=== PATIENT | male | born 1945 | race Caucasian/White ===

== ENCOUNTER → 2017-04-25 | Outpatient (CLI) | payer MEDICARE, OTHER ==
[~2017-04-25] MED LIST: ATOR20TA PO; GLIP2.5T16 PO; MAGNESIUM PO; METF100010 PO; OXYC-302 PO; PIOG30TA8 PO; TIZA2CAP2 PO
== END | disposition home or self-care (01) ==
LOC: CARD 15:43
PROVIDERS: ATTEND Family Medicine
DX: R06.02 Shortness of breath (principal)
CPT/HCPCS: 94060; 94726; 94729

== ENCOUNTER 2017-08-22 13:30 | Observation (INO) | payer MEDICARE, OTHER ==
[~2017-08-22] VITALS: Ht 167.6 cm; Wt 82.8 kg
[~2017-08-22 13:30] MED LIST changes: +AMIO200T42 PO; +ASPI-770 PO; +CEPH-368 PO; +CLOP75TA PO; +DOCU-131 PO; +FURO20TA3 PO; +GUAI200T3 PO; +HYDR-3240 PO; +METO25TA35 PO; +PANT40TA5 PO; +PIOG30TA23 PO; -PIOG30TA8 PO; +POTA20TA6 PO
[2017-08-23] VITALS (7 sets, daily range): BP systolic 101–128; BP diastolic 61–73
[2017-08-23] MEDS ORDERED: FENTANYL PF 250 MCG/5ML ONE (13:49)
[2017-08-23] MEDS ORDERED: MIDAZOLAM 1 MG/ML, 5ML ONE (13:49)
[2017-08-23] MEDS ORDERED: CEFAZOLIN 1,000 MG ONE (14:16)
[2017-08-23] MEDS ORDERED: PROPOFOL 10 MG/ML, 20ML ONE (14:34)
[2017-08-23] MEDS ORDERED: ONDANSETRON 2MG/ML, 2ML IVPush PRN (15:00)
[2017-08-23] MEDS ORDERED: ACETAMINOPHEN 325 MG TABLET PO PRN (15:00)
[2017-08-23] MEDS ORDERED: HYDROmorphone 1 MG/ML, 1ML IV PRN (15:00)
[2017-08-23] MEDS ORDERED: FENTANYL PF 100 MCG/2ML IV PRN (15:00)
[2017-08-23] MEDS ORDERED: TIZANIDINE 2MG TABLET PO PRN (15:00)
[2017-08-23] MEDS ORDERED: MIDAZOLAM 1 MG/ML, 2ML IV PRN (15:00)
[2017-08-23] MEDS ORDERED: PROMETHAZINE 25 MG/ML, 1ML IV PRN (15:00)
[2017-08-23] MEDS ORDERED: OXYcodone 5 MG/5 ML ORAL.SOL UDC PO PRN (15:00)
[2017-08-23] MEDS ORDERED: HYDROcodone/APAP 5/325 TABLET PO PRN (15:00)
[2017-08-23] MEDS ORDERED: OXYcodone 5 MG/5 ML ORAL.SOL UDC ONE ×2 (15:10→15:20)
[2017-08-23] MEDS ORDERED: ACETAMINOPHEN 650 MG/20.3 ML UDC ONE ×2 (15:10→15:20)
[2017-08-23 15:52] LABS: HEMATOCRIT 36.1 % (39.2-51.8); HEMOGLOBIN 12.1 g/dL (13.7-18.0); WHITE BLOOD COUNT 5.6 x10^3/uL (3.4-10)
[2017-08-23] MEDS: GUAIFENESIN 200 MG TABLET PO SCH ×2 (16:00→21:00)
[2017-08-23 16:05] LABS: BLOOD UREA NITROGEN 11 mg/dL (7-18)
[2017-08-23] MEDS: METOPROLOL TARTRATE 25 MG TABLET PO SCH (17:23)
[2017-08-23] MEDS: AMIODARONE 200 MG TABLET PO SCH (20:59)
[2017-08-23] MEDS: metFORMIN XR 500 MG TAB.ER.24H PO SCH (20:59)
[2017-08-23] MEDS: CEPHALEXIN 500 MG CAPSULE PO SCH (21:00)
[2017-08-23] MEDS: DOCUSATE 100 MG CAPSULE PO SCH (21:00)
[2017-08-23] MEDS ORDERED: ATORVASTATIN 20 MG TABLET PO SCH (21:00)
[2017-08-24 02:41] VITALS: BP 115/68
[2017-08-24 05:32] VITALS: BP 109/66
[2017-08-24] MEDS: GUAIFENESIN 200 MG TABLET PO SCH ×3 (05:33→16:00)
[2017-08-24] MEDS: METOPROLOL TARTRATE 25 MG TABLET PO SCH ×2 (05:33→18:31)
[2017-08-24] MEDS ORDERED: PANTOPROZOLE 40MG TABLET PO SCH (07:30)
[2017-08-24 08:16] VITALS: BP 115/67
[2017-08-24] MEDS ORDERED: ASPIRIN 81 MG TABLET CHEW PO SCH (09:00)
[2017-08-24] MEDS ORDERED: PIOGLITAZONE 15 MG TABLET PO SCH (09:00)
[2017-08-24] MEDS ORDERED: POTASSIUM CHLORIDE 20 MEQ TAB.ER.PRT PO SCH (09:00)
[2017-08-24] MEDS ORDERED: FUROSEMIDE 20 MG TABLET PO SCH (09:00)
[2017-08-24] MEDS: DOCUSATE 100 MG CAPSULE PO SCH (09:00)
[2017-08-24] MEDS ORDERED: CLOPIDOGREL 75 MG TABLET PO SCH (09:00)
[2017-08-24] MEDS ORDERED: GLIPizide ER 2.5 MG TABLET PO SCH (09:00)
[2017-08-24] MEDS: metFORMIN XR 500 MG TAB.ER.24H PO SCH (10:12)
[2017-08-24] MEDS: AMIODARONE 200 MG TABLET PO SCH ×2 (10:12→18:31)
[2017-08-24] MEDS: CEPHALEXIN 500 MG CAPSULE PO SCH (10:14)
[2017-08-24] MEDS ORDERED: DOXY100V9 PO (13:26)
[2017-08-24] MEDS ORDERED: CEFD300C37 PO (13:29)
[2017-08-24 13:39] VITALS: BP 125/73
[2017-08-24] MEDS ORDERED: DOXYCYCLINE 100MG TABLET ONE (18:02)
[2017-08-24] MEDS ORDERED: DOXYCYCLINE 100MG TABLET PO SCH (21:00)
[2017-08-24] MEDS ORDERED: CEFDINIR 300 MG CAPSULE PO SCH (21:00)
== END 2017-08-24 18:55 | disposition home or self-care (01) ==
LOC: EDSTATUS 13:30 → INTOOBSV 08-23 11:03 → 5SO 08-23 11:03
PROVIDERS: ADMIT Thoracic Surgery (Cardiothoracic Vascular Surgery); ATTEND Thoracic Surgery (Cardiothoracic Vascular Surgery)
DX: L76.34 Postprocedural seroma of skin and subcutaneous tissue following other procedure (principal)
CPT/HCPCS: 27301; 36415; 80048; 85025; 87070; 87075; 87186; 87205; G0378; J0690; J2250; J2704; J3010

== ENCOUNTER → 2017-08-28 | Outpatient (CLI) | payer MEDICARE, OTHER ==
[~2017-08-28] MED LIST changes: +CEFD300C37 PO; +DOXY100V9 PO
== END | disposition home or self-care (01) ==
LOC: WOUND 08:49
PROVIDERS: ATTEND Internal Medicine
DX: T81.31XA Disruption of external operation (surgical) wound, not elsewhere classified, initial encounter (principal); E11.51 Type 2 diabetes mellitus with diabetic peripheral angiopathy without gangrene; I48.0 Paroxysmal atrial fibrillation; E78.00 Pure hypercholesterolemia, unspecified; I10 Essential (primary) hypertension; F17.210 Nicotine dependence, cigarettes, uncomplicated; Z96.649 Presence of unspecified artificial hip joint; Y92.89 Other specified places as the place of occurrence of the external cause; Y83.8 Other surgical procedures as the cause of abnormal reaction of the patient, or of later complication, without mention of misadventure at the time of the procedure
CPT/HCPCS: 11042; 11045; 97605; G0463; WOU0463

== ENCOUNTER → 2017-09-04 | Outpatient (CLI) | payer MEDICARE, OTHER | END | disposition home or self-care (01) | LOC: WOUND 10:30 | PROVIDERS: ATTEND Family Medicine | DX: T81.31XD Disruption of external operation (surgical) wound, not elsewhere classified, subsequent encounter (principal); I10 Essential (primary) hypertension; I48.0 Paroxysmal atrial fibrillation; E11.51 Type 2 diabetes mellitus with diabetic peripheral angiopathy without gangrene; I25.10 Atherosclerotic heart disease of native coronary artery without angina pectoris; E66.9 Obesity, unspecified; E78.5 Hyperlipidemia, unspecified; I49.01 Ventricular fibrillation; Z95.1 Presence of aortocoronary bypass graft; F17.210 Nicotine dependence, cigarettes, uncomplicated; Z96.649 Presence of unspecified artificial hip joint; Z68.33 Body mass index [BMI] 33.0-33.9, adult; Y83.8 Other surgical procedures as the cause of abnormal reaction of the patient, or of later complication, without mention of misadventure at the time of the procedure | CPT/HCPCS: 11042; 97605 ==

== ENCOUNTER → 2017-09-11 | Outpatient (CLI) | payer MEDICARE, OTHER | END | disposition home or self-care (01) | LOC: WOUND 13:00 | PROVIDERS: ATTEND Internal Medicine | DX: T81.31XD Disruption of external operation (surgical) wound, not elsewhere classified, subsequent encounter (principal); I25.10 Atherosclerotic heart disease of native coronary artery without angina pectoris; I10 Essential (primary) hypertension; I48.0 Paroxysmal atrial fibrillation; E11.51 Type 2 diabetes mellitus with diabetic peripheral angiopathy without gangrene; I49.01 Ventricular fibrillation; E78.00 Pure hypercholesterolemia, unspecified; F17.210 Nicotine dependence, cigarettes, uncomplicated; Z96.649 Presence of unspecified artificial hip joint; Z95.1 Presence of aortocoronary bypass graft; Z68.33 Body mass index [BMI] 33.0-33.9, adult; Y83.8 Other surgical procedures as the cause of abnormal reaction of the patient, or of later complication, without mention of misadventure at the time of the procedure | CPT/HCPCS: 97597 ==

== ENCOUNTER → 2017-09-18 | Outpatient (CLI) | payer MEDICARE, OTHER | END | disposition home or self-care (01) | LOC: WOUND 10:30 | PROVIDERS: ATTEND Internal Medicine | DX: T81.31XD Disruption of external operation (surgical) wound, not elsewhere classified, subsequent encounter (principal); I25.10 Atherosclerotic heart disease of native coronary artery without angina pectoris; I10 Essential (primary) hypertension; I48.0 Paroxysmal atrial fibrillation; E78.00 Pure hypercholesterolemia, unspecified; E11.51 Type 2 diabetes mellitus with diabetic peripheral angiopathy without gangrene; I49.01 Ventricular fibrillation; E66.9 Obesity, unspecified; F17.210 Nicotine dependence, cigarettes, uncomplicated; Z95.1 Presence of aortocoronary bypass graft; Z68.33 Body mass index [BMI] 33.0-33.9, adult; Y83.8 Other surgical procedures as the cause of abnormal reaction of the patient, or of later complication, without mention of misadventure at the time of the procedure | CPT/HCPCS: 11042; 97605 ==

== ENCOUNTER → 2017-09-25 | Outpatient (CLI) | payer MEDICARE, OTHER | END | disposition home or self-care (01) | LOC: WOUND 09:00 | PROVIDERS: ATTEND Internal Medicine | DX: T81.31XD Disruption of external operation (surgical) wound, not elsewhere classified, subsequent encounter (principal); I25.10 Atherosclerotic heart disease of native coronary artery without angina pectoris; I10 Essential (primary) hypertension; E66.9 Obesity, unspecified; I48.0 Paroxysmal atrial fibrillation; E78.00 Pure hypercholesterolemia, unspecified; I49.01 Ventricular fibrillation; F17.210 Nicotine dependence, cigarettes, uncomplicated; Z68.33 Body mass index [BMI] 33.0-33.9, adult; Z95.1 Presence of aortocoronary bypass graft; Y83.8 Other surgical procedures as the cause of abnormal reaction of the patient, or of later complication, without mention of misadventure at the time of the procedure | CPT/HCPCS: 97597 ==

== ENCOUNTER → 2017-10-09 | Outpatient (CLI) | payer MEDICARE, OTHER | END | disposition home or self-care (01) | LOC: WOUND 09:25 | PROVIDERS: ATTEND Internal Medicine | DX: T81.31XD Disruption of external operation (surgical) wound, not elsewhere classified, subsequent encounter (principal); I25.10 Atherosclerotic heart disease of native coronary artery without angina pectoris; I10 Essential (primary) hypertension; E66.9 Obesity, unspecified; I48.0 Paroxysmal atrial fibrillation; E78.00 Pure hypercholesterolemia, unspecified; I49.01 Ventricular fibrillation; E11.51 Type 2 diabetes mellitus with diabetic peripheral angiopathy without gangrene; F17.210 Nicotine dependence, cigarettes, uncomplicated; Z68.33 Body mass index [BMI] 33.0-33.9, adult; Z96.649 Presence of unspecified artificial hip joint; Z95.1 Presence of aortocoronary bypass graft; Y83.8 Other surgical procedures as the cause of abnormal reaction of the patient, or of later complication, without mention of misadventure at the time of the procedure | CPT/HCPCS: G0463; WOU0463 ==

== ENCOUNTER → 2017-12-26 | Outpatient (CLI) | payer MEDICARE, OTHER ==
[~2017-12-26] MED LIST changes: +ASPI-496 PO; +PREG150C PO
[2017-12-26 12:08] LABS: BASOPHILS # (AUTO) 0.03 x10^3/uL (0-0.1); BASOPHILS % (AUTO) 1 % (0-1); EOSINOPHILS # (AUTO) 0.23 x10^3/uL (0-0.4); EOSINOPHILS % (AUTO) 4 % (1-7); LYMPHOCYTES # (AUTO) 2.23 x10^3/uL (1-3.4); LYMPHOCYTES % (AUTO) 43 % (22-44); MD NO; MEAN CORPUSCULAR HEMOGLOBIN 32.3 pg (27.5-34.5); MEAN CORPUSCULAR HGB CONC 34.3 g/dL (33.2-36.2); MEAN CORPUSCULAR VOLUME 94.2 fL (81-97); MEAN PLATELET VOLUME 7.9 fL (7.4-10.4); MONOCYTES # (AUTO) 0.59 x10^3/uL (0.2-0.8); MONOCYTES % (AUTO) 11 % (2-9); NEUTROPHILS # (AUTO) 2.14 x10^3/uL (1.8-6.8); NEUTROPHILS % (AUTO) 41 % (42-75); PLATELET COUNT 207 x10^3/uL (130-400); RED BLOOD COUNT 4.68 x10^6/uL (4.38-5.82); RED CELL DISTRIBUTION WIDTH 14.9 % (9.4-14.8)
[2017-12-26 12:17] LABS: CHLORIDE 109 mmol/L (98-107)
[2017-12-26 12:25] LABS: ANION GAP 9 mmol/L (5-15); CALCIUM 8.6 mg/dL (8.5-10.1)
== END | disposition home or self-care (01) ==
LOC: STAR 11:07
PROVIDERS: ATTEND Surgery
DX: I70.211 Atherosclerosis of native arteries of extremities with intermittent claudication, right leg (principal)
CPT/HCPCS: 36415; 80048; 85025

== ENCOUNTER 2017-12-30 07:06 | Day surgery (SDC) | payer MEDICARE, OTHER ==
[~2017-12-30] VITALS: Ht 167.6 cm; Wt 95.0 kg
[2017-12-30] MEDS ORDERED: CEFAZOLIN 2,000 MG in DEXTROSE 5% 50 ML IV ONE ×2 (07:30)
[2017-12-30 08:30] VITALS: BP 130/74
[2017-12-30] MEDS ORDERED: SODIUM CHLORIDE 0.9% 1,000 ML IV SCH (08:39)
[2017-12-30] MEDS ORDERED: NITROGLYCERIN 5 MG/ML, 10ML ONE (08:54)
[2017-12-30] MEDS ORDERED: MIDAZOLAM 1 MG/ML, 5ML ONE (08:54)
[2017-12-30] MEDS ORDERED: FENTANYL PF 100 MCG/2ML ONE (08:54)
[2017-12-30] MEDS ORDERED: HEPARIN 1,000 UNITS/ML, 10ML ONE (08:54)
[2017-12-30] MEDS ORDERED: FLUMAZENIL 0.1 MG/1 ML, 5ML ONE (08:54)
[2017-12-30] MEDS ORDERED: NALOXONE 1 MG/ML, 2ML ONE (08:55)
[2017-12-30] MEDS ORDERED: PROTAMINE SULFATE 10 MG/ML, 25ML ONE (08:55)
[2017-12-30] MEDS ORDERED: LIDOCAINE 2%, 20ML ONE (08:55)
[2017-12-30] MEDS ORDERED: VISIPAQUE 270 MG/ML, 50ML BOTTLE ONE (13:00)
== END 2017-12-30 12:40 ==
LOC: OUT 07:06
PROVIDERS: ATTEND Surgery
DX: I70.213 Atherosclerosis of native arteries of extremities with intermittent claudication, bilateral legs (principal); I25.10 Atherosclerotic heart disease of native coronary artery without angina pectoris; E11.9 Type 2 diabetes mellitus without complications; E78.5 Hyperlipidemia, unspecified; Z95.1 Presence of aortocoronary bypass graft
CPT/HCPCS: 36200; 75630; 82962; 99156; 99157; C1751; C1769; C1894; J0690; J2250; J3010; J3490; J7030; Q9966; J1644; J2720; J2310

== ENCOUNTER 2018-11-12 15:52 | Outpatient (CLI) | payer MEDICARE, OTHER ==
[~2018-11-12 15:52] MED LIST changes: -ASPI-770 PO; +ASPI81TA59 PO
== END 2018-11-12 23:59 | disposition home or self-care (01) ==
LOC: CARD 15:52
PROVIDERS: ATTEND Internal Medicine Cardiovascular Disease
DX: R42 Dizziness and giddiness (principal); I25.10 Atherosclerotic heart disease of native coronary artery without angina pectoris; E78.5 Hyperlipidemia, unspecified; Z87.891 Personal history of nicotine dependence
CPT/HCPCS: 93880; 94060; 94726; 94729

== ENCOUNTER 2019-10-14 07:08 | Outpatient (CLI) | payer MEDICARE, OTHER ==
[~2019-10-14 07:08] MED LIST changes: -GUAI200T3 PO; +GUAI200T37 PO
== END 2019-10-14 23:59 | disposition home or self-care (01) ==
LOC: CFH 07:08
PROVIDERS: ATTEND Internal Medicine Cardiovascular Disease
DX: I71.4 Abdominal aortic aneurysm, without rupture (principal)
CPT/HCPCS: 93978

== ENCOUNTER → 2021-06-28 | Outpatient (CLI) | payer MEDICARE, OTHER ==
[~2021-06-28] MED LIST changes: +HYDR-2214 PO; -HYDR-3240 PO; -OXYC-302 PO; +OXYC1TAB12 PO; -PANT40TA5 PO; +PANT40TA6 PO; +POTA-143 PO; -POTA20TA6 PO
== END | disposition home or self-care (01) ==
LOC: CVU 15:30
PROVIDERS: ATTEND Internal Medicine Cardiovascular Disease
DX: I65.23 Occlusion and stenosis of bilateral carotid arteries (principal); E78.5 Hyperlipidemia, unspecified
CPT/HCPCS: 93880